=== PATIENT | female | born 1980 | race Caucasian/White ===

== ENCOUNTER → 2018-11-06 | Outpatient (CLI) | payer OTHER ==
--- NOTE | 2018-11-06 16:56 | RAD ---
US PELVIS W/TV History: Left lower quadrant pelvic pain for a couple of weeks, endometriosis, irregular periods Comparison: None. Findings: Multiple transabdominal sonographic images of pelvis are submitted. Endometrium measured about 0.5 cm. Uterus measured 6.7 x 3.8 x 4.8 cm. Left ovary measured 2.7 x 2.9 x 3.4 cm. Transvaginal ultrasound: Multiple transvaginal sonographic images of pelvis are symmetric. Endometrium measured about 1 cm. There is some fluid in the cervical canal. Uterus measured 8.9 x 3.9 x 4.7 cm. Left ovary measured 3.3 x 2.5 x 3.5 cm with normal low resistance vascularity. There is a nearly anechoic lesion of the left ovary about 1.8 x 2 x 1.6 cm with increased through transmission. Right ovary measured 3.4 x 3 x 2.1 cm. There is focus of different echogenicity of the right ovary about 1.4 x 1.2 x 2.1 cm with increased through transmission, diffuse internal echoes present. There is normal low resistance vascularity of the right ovary. There is a right uterine mass near the serosal surface with somewhat exophytic extent about 2.4 x 2.1 x 2.5 cm in size. Impression: 1. There is right uterine mass, most likely a fibroid. There is some nonspecific fluid in the cervical canal. Endometrial thickness about 1 cm potentially can be within normal limits for the patient's age especially during secretory phase. 2. There is a right ovarian lesion which could be an endometrioma versus complex cyst, also simple appearing cyst of the left ovary. Electronically signed by: José Miguel Trejo MD (11/06/2018 4:53 PM) [id number]
== END | disposition home or self-care (01) ==
LOC: US 12:50
PROVIDERS: ATTEND Obstetrics & Gynecology
DX: N85.8 Other specified noninflammatory disorders of uterus (principal); N83.201 Unspecified ovarian cyst, right side; N83.202 Unspecified ovarian cyst, left side
CPT/HCPCS: 76830; 76856